=== PATIENT | female | born 1990 | race Caucasian/White ===

== ENCOUNTER → 2021-11-01 10:57 | Outpatient (BNVA) | payer OTHER, SELFPAY | PROVIDERS: PCP Internal Medicine; Visit Provider Physician Assistant Surgical | DX: Z13.89 Encounter for screening for other disorder (principal) ==

== ENCOUNTER → 2021-11-10 14:41 | Outpatient (BNVA) | payer OTHER, SELFPAY | PROVIDERS: PCP Internal Medicine; Visit Provider Physician Assistant Surgical | DX: E66.9 Obesity, unspecified (principal); Z68.39 Body mass index [BMI] 39.0-39.9, adult | CPT/HCPCS: 99202 ==

== ENCOUNTER 2021-11-15 12:44 | Outpatient (REF) | payer OTHER, SELFPAY ==
--- NOTE | ~2021-11-15 | XR_ITS ---
EXAMINATION: XR CHEST CLINICAL INFORMATION: Obesity COMPARISON: None TECHNIQUE: 2 views of the chest were obtained. FINDINGS: No significant abnormality is noted involving the heart, lungs, mediastinum, bony thorax or soft tissues. XR/XR chest 2V IMPRESSION: Unremarkable examination.
[2021-11-15 13:11] LABS: MANUAL DIFF FLAG NO
--- NOTE | 2021-11-15 13:11 | ECG_ITS ---
Test Reason : CP Blood Pressure : / mmHG Vent. Rate : 089 BPM Atrial Rate : 089 BPM P-R Int : 158 ms QRS Dur : 074 ms QT Int : 368 ms P-R-T Axes : 057 064 044 degrees QTc Int : 447 ms Normal sinus rhythm Normal ECG No previous ECGs available Referred By: Adriel Whitehead Electronically Signed By:ANTWON BAL
[2021-11-15 14:05] LABS: Basophils Percent Auto 0.2 % (0-2); Eosinophils Absolute Auto 0.1 X10*3/uL (0.0-0.4); Eosinophils Percent Auto 1.9 % (0-4); Hematocrit 39.4 % (37.0-47.0); Hemoglobin 12.6 g/dl (12.0-16.0); Imm Gran Abs Auto 0.02 X10*3/uL (0.00-0.03); Imm Gran Pct Auto 0.3 % (0.0-0.4); Lymphocytes Absolute Auto 1.7 X10*3/uL (1.2-4.9); Lymphocytes Percent Auto 27.7 % (20-40); Mean Corpuscular Volume 81.2 fL (80.0-98.0); Mean Platelet Volume 13.1 fL (9.4-12.3); Monocytes Absolute Auto 0.4 X10*3/uL (0.1-1.2); Neutrophils Absolute Auto 3.9 x10*3/uL (2.0-8.3); Neutrophils Percent Auto 62.9 % (45-73); Platelet Count 203 X10*3/uL (160-400); Red Blood Count 4.85 X10*6/uL (4.20-5.50); Red Cell Distribution Width 15.6 % (11.0-16.0); White Blood Count 6.2 X10*3/uL (4.8-10.8)
[2021-11-15 14:17] LABS: Estimated Average Glucose 157 mg/dL; Hemoglobin A1c % 7.1 %
[2021-11-15 14:19] LABS: Alanine Aminotransferase 15 U/L (0-31); Alkaline Phosphatase 80 U/L (39-117); Anion Gap 14 (12-20); Aspartate Amino Transferase 15 U/L (5-31); Bilirubin Total 0.4 mg/dL (0.0-1.0); Blood Urea Nitrogen 10 mg/dL (9-16); C Reactive Protein 1.93 mg/dL (< or = 0.50); Calcium 8.8 mg/dL (8.4-10.2); Carbon Dioxide 26 mmol/L (22-29); Chloride 105 mmol/L (96-108); Cholesterol 136 mg/dL; Estimated Glomerular Filt Rate > 60; Glucose Random 123 mg/dL (60-115); HDL Cholesterol 37 mg/dL; Iron 27 mcg/dL (30-160); LDL Cholesterol Calculated 89 mg/dl; Percent Iron Saturation 8 % (15-50); Potassium 4.5 mmol/L (3.3-5.1); Sodium 140 mmol/L (135-145); Total Iron Binding Capacity 350 mcg/dL (228-428); Total Protein 7.2 g/dL (6.5-8.0); Triglycerides 54 mg/dL; Unsaturated Iron Binding 323 ug/dL
[2021-11-15 14:42] LABS: Ferritin 24 ng/mL (10-122); Vitamin D 25-OH Total 22.4 ng/mL (>30)
[2021-11-15 14:58] LABS: Folate > 20.0 ng/mL (> or = 4.0); Vitamin B12 884 pg/mL (200-900)
[2021-11-15 15:04] LABS: Insulin 13 uU/mL (2-29)
[2021-11-16 14:47] LABS: Calcium (PTHI) 8.9 mg/dL (8.6-10.2); PTHI 63 pg/mL (16-77)
[2021-11-18 05:36] LABS: Zinc 79 mcg/dL (60-130)
[2021-11-19 00:58] LABS: Vitamin A 27 mcg/dL (38-98)
[2021-11-21 12:32] LABS: Vitamin B1 11 nmol/L (8-30)
== END 2021-11-15 12:45 | disposition home or self-care (01) ==
LOC: HO.LAB 12:44
PROVIDERS: Visit Provider Physician Assistant Surgical
DX: E66.9 Obesity, unspecified (principal); R07.9 Chest pain, unspecified
CPT/HCPCS: 36415; 71046; 80053; 80061; 82306; 82607; 82728; 82746; 83036; 83525; 83540; 83970; 84425; 84443; 84590; 84630; 85025; 86140; 93005

== ENCOUNTER → 2021-11-22 09:00 | Outpatient (BNVA) | payer OTHER, SELFPAY | PROVIDERS: PCP Internal Medicine; Visit Provider Counselor Mental Health | DX: F50.81 Binge eating disorder (principal); E66.9 Obesity, unspecified | CPT/HCPCS: 90791 ==

== ENCOUNTER → 2021-11-29 08:35 | Outpatient (BNVA) | payer OTHER, SELFPAY | PROVIDERS: PCP Internal Medicine; Visit Provider Physician Assistant Surgical | DX: Z11.0 Encounter for screening for intestinal infectious diseases (principal) | CPT/HCPCS: 99211 ==

== ENCOUNTER 2021-11-29 08:55 | Outpatient (REF) | payer OTHER, SELFPAY ==
[2021-12-02 17:27] LABS: H Pylori Breath Test Negative (Negative)
== END 2021-11-29 08:56 | disposition home or self-care (01) ==
LOC: HO.LNP 08:55
PROVIDERS: Visit Provider Physician Assistant Surgical
DX: E66.9 Obesity, unspecified (principal)
CPT/HCPCS: 83013

== ENCOUNTER → 2021-12-06 10:36 | Outpatient (BNVA) | payer OTHER, SELFPAY | PROVIDERS: PCP Internal Medicine; Visit Provider Dietitian, Registered | DX: E66.9 Obesity, unspecified (principal) | CPT/HCPCS: 97802 ==

== ENCOUNTER → 2021-12-20 09:00 | Outpatient (BNVA) | payer OTHER, SELFPAY | PROVIDERS: PCP Internal Medicine; Visit Provider Counselor Mental Health | DX: F50.81 Binge eating disorder (principal); E66.9 Obesity, unspecified | CPT/HCPCS: 90832 ==

== ENCOUNTER 2022-01-03 07:49 | Outpatient (REF) | payer OTHER, SELFPAY ==
--- NOTE | ~2022-01-03 | FL_ITS ---
EXAMINATION: XR FLUOROSCOPY UPPER GI WITH AIR CLINICAL INFORMATION: Obesity. COMPARISON: None. TECHNIQUE: Routine upper GI air-contrast study was performed in upright and lying position. FINDINGS: Following oral administration of thick barium and effervescent granules in upright view there is normal propagation bolus from the oral cavity through the esophagus into the stomach without any evidence of obstruction, narrowing or stricture. On placing the patient supine and prone, the course, caliber and peristalsis of stomach and the duodenal bulb is normal. The mucosal pattern of the stomach and the duodenum is normal. FLUOROSCOPY TIME: 2.0 minutes. DOSE AREA PRODUCT: 37.4 uGy-m2 (microgray-meter squared) FL/FL upper GI w air IMPRESSION: Unremarkable upper GI examination.
--- NOTE | ~2022-01-03 | US_ITS ---
EXAMINATION: US COMPLETE ABDOMEN WITH LIVER ELASTOGRAPHY CLINICAL INFORMATION: Obesity. COMPARISON: None. TECHNIQUE: Real-time imaging of the abdominal viscera. Noninvasive ultrasound liver fibrosis assessment is performed using Mahamed ElastPQ point quantification shear wave elastography (2D-SWE) with a C5-2 MHz transducer. Multiple elastography samples are obtained. FINDINGS: PANCREAS: Normal. The visualized pancreatic head and body are normal in appearance. The remainder of the pancreas is obscured from visualization by the overlying bowel gas. ABDOMINAL AORTA: The proximal, middle, and distal aortic segments are normal in caliber. INFERIOR VENA CAVA: Visualized portions are normal. LIVER: . The liver demonstrates normal size, contour and echogenicity. There is a hyperechoic focal area in the anterior right hepatic lobe measuring 4.5 x 1.3 x 3.3 cm, likely focal fatty infiltration. No additional lesions are seen. There is no intrahepatic ductal dilatation. The right lobe measures 18.6 cm in length. The left lobe measures 11.3 cm in length. Portal flow is hepatopetal. Shear wave liver elastography median stiffness is 1.37 m/s (reference: normal median stiffness is 1.3 m/s or less). IQR/median stiffness to assess sampling precision is 0.15 (reference: good quality data set is IQR/median stiffness of 0.15 or less). GALLBLADDER: Normal. The gallbladder is physiologically distended without evidence of stones, sludge, polyps, wall thickening or pericholecystic fluid. COMMON BILE DUCT: Normal in caliber measuring 0.3 cm in diameter. RIGHT KIDNEY: No hydronephrosis. There is a small echogenic area in the lower pole measuring 0.5 x 0.2 x 0.4 cm without a twinkle. No additional lesions are seen. No focal parenchymal lesions. The kidney measures 11.0 cm in maximum dimension. LEFT KIDNEY: . There is no caliectasis or hydronephrosis. No renal calculi or focal parenchymal lesions. The kidney measures 11.8 cm in maximum dimension. SPLEEN: Normal. The spleen measures 12.4 cm in maximum dimension. FREE FLUID: None. US/US abdomen comp w elastography IMPRESSION: 1. Right renal calculi without calculus hydronephrosis. Focal fatty infiltration in the right hepatic lobe measuring 4.5 cm wide. 2. Liver elastography: Median liver stiffness measures 1.37 m/s suggestive of cACLD (ruled out) REFERENCE: Society of Radiologists in Ultrasound Liver Stiffness Thresholds (2020): LIVER STIFFNESS THRESHOLDS: *Liver Stiffness equal or less than 1.3 m/s: High probability of being normal. *Liver Stiffness less than 1.7 m/s: In the absence of other known clinical signs, rules out compensated advanced chronic liver disease. *Liver Stiffness 1.7-2.1 m/s: Suggestive of compensated advanced chronic liver disease but need further test for confirmation. *Liver Stiffness over 2.1 m/s: Rules in compensated advanced chronic liver disease. *Liver Stiffness over 2.4 m/s: Suggestive of clinically significant portal hypertension. QUALITY OF DATA SET: *IQR/Median value equal or less than 0.15 implies a quality data set. *IQR/Median value over 0.15 implies a poor quality data set. SIGNIFICANT CHANGE FROM PRIOR EXAM: Significant change if liver stiffness measurement is 10% or greater from prior exam. OTHER CONSIDERATIONS: The stage of liver fibrosis may be overestimated in the setting of acute hepatitis, liver inflammation, elevated liver function tests, hepatic vascular congestion, obstructive cholestasis, non-fasting state, and infiltrative diseases such as amyloidosis and lymphoma. In some patients with NAFLD, the liver stiffness thresholds for compensated advanced chronic liver disease may be lower. In causes other than viral hepatitis and NAFLD, liver stiffness thresholds are not well established.
== END 2022-01-03 07:50 | disposition home or self-care (01) ==
LOC: HO.US 07:49
PROVIDERS: Visit Provider Surgery
DX: E66.9 Obesity, unspecified (principal)
CPT/HCPCS: 74246; 76705; 76981

== ENCOUNTER 2022-02-01 09:06 | Outpatient (REF) | payer OTHER, SELFPAY | END 2022-02-01 09:07 | disposition home or self-care (01) | LOC: HO.LAB 09:06 | PROVIDERS: PCP Internal Medicine; Visit Provider Physician Assistant Surgical | DX: Z13.89 Encounter for screening for other disorder (principal) ==

== ENCOUNTER 2022-02-08 06:03 | Inpatient (IN) | payer OTHER, SELFPAY ==
[2022-01-21 13:05] VITALS: BMI 35.9
[2022-02-01 09:46] LABS: MANUAL DIFF FLAG NO
[2022-02-01 10:54] LABS: Basophils Percent Auto 0.4 % (0-2); Eosinophils Absolute Auto 0.1 X10*3/uL (0.0-0.4); Eosinophils Percent Auto 2.2 % (0-4); Hematocrit 43.1 % (37.0-47.0); Imm Gran Abs Auto 0.01 X10*3/uL (0.00-0.03); Imm Gran Pct Auto 0.2 % (0.0-0.4); Lymphocytes Absolute Auto 1.5 X10*3/uL (1.2-4.9); Lymphocytes Percent Auto 30.8 % (20-40); Mean Corpuscular HGB Conc 32.5 g/dl (31.0-35.0); Mean Corpuscular Hemoglobin 26.7 pg (27.0-33.0); Mean Corpuscular Volume 82.1 fL (80.0-98.0); Mean Platelet Volume 12.6 fL (9.4-12.3); Monocytes Absolute Auto 0.4 X10*3/uL (0.1-1.2); Monocytes Percent Auto 7.9 % (2-11); Neutrophils Absolute Auto 2.9 x10*3/uL (2.0-8.3); Neutrophils Percent Auto 58.5 % (45-73); Platelet Count 222 X10*3/uL (160-400); Red Blood Count 5.25 X10*6/uL (4.20-5.50); Red Cell Distribution Width 14.4 % (11.0-16.0); White Blood Count 4.9 X10*3/uL (4.8-10.8)
[2022-02-01 10:55] LABS: INTERNATIONAL NORM RATIO 1.1 (0.9-1.1); Prothrombin Time 13.1 SEC (10.0-13.1)
[2022-02-01 10:57] LABS: Estimated Average Glucose 134 mg/dL; Hemoglobin A1c % 6.3 %
[2022-02-01 11:18] LABS: Alanine Aminotransferase 12 U/L (0-31); Albumin Level 4.2 g/dL (3.5-5.0); Alkaline Phosphatase 73 U/L (39-117); Anion Gap 15 (12-20); Aspartate Amino Transferase 14 U/L (5-31); Bilirubin Total 0.5 mg/dL (0.0-1.0); Blood Urea Nitrogen 12 mg/dL (9-16); C Reactive Protein 0.76 mg/dL (< or = 0.50); Calcium 9.3 mg/dL (8.4-10.2); Carbon Dioxide 25 mmol/L (22-29); Chloride 103 mmol/L (96-108); Cholesterol 148 mg/dL; Creatinine Clr Calc Pharmacy 123.6; Estimated Glomerular Filt Rate > 60; Glucose Random 182 mg/dL (60-115); HDL Cholesterol 39 mg/dL; LDL Cholesterol Calculated 99 mg/dl; Potassium 4.4 mmol/L (3.3-5.1); Sodium 139 mmol/L (135-145); Total Protein 7.4 g/dL (6.5-8.0); Triglycerides 53 mg/dL
[2022-02-01 11:42] LABS: Insulin 9 uU/mL (2-29); TSH reflex Free T4 2.49 uIU/mL (0.32-4.0)
--- NOTE | 2022-02-05 13:49 | MHC.SHP ---
Pre-Procedural Eval Section A Date of Service: 02/05/22 The patient is an INPATIENT: Yes The History & Physical has been completed within 30 days and I have reviewed it.: Yes Section B Chief Complaint: obesity Relevant Family History (Specify if Yes): No Relevant Social History: None Present Medications: None Medical History: No relevant PMH History of Previous Operations: No relevant previous surgery Allergies: Allergies Allergy/AdvReac Type Severity Reaction Status Date / Time No Known Allergies Allergy Verified 01/21/22 12:40 Review of Systems Sugical H&P ROS: Negative: Constitution, Cardiovascular, Respiratory, Neurological, Psychiatric, Hem-Onc, Allergic/Immunologic, Gastrointestinal, Genitourinary, Musculoskeletal, Integumentary, Endocrine and Eyes/Ears/Nose/Throat Exam Surgical H&P Exam: Normal: HEENT, Normal: Heart, Normal: Lungs, Normal: Extremities, Normal: Abdomen, Normal: Skin and Normal: Neurological Plan Diagnosis/Plan: Unchanged I have reviewed the history and physical and performed a pertinent physical examination on my patient. No changes have occurred unless specified.
[2022-02-07 13:35] LABS: COVID-19 Test Negative (Negative); IDNOW Serial# 16C4AD1C
[2022-02-08] VITALS (14 sets, daily range): BP systolic 98–154; BP diastolic 69–83; PULSE 65–95; RESP 13–21; TEMP 36.2–36.6; O2SAT 97–100
[2022-02-08 06:23] LABS: UPreg QC Valid YES; Urine Pregnancy NEGATIVE (NEGATIVE)
[2022-02-08] MEDS: Lactated Ringers 1,000 ML 999 ML IV ×2 (06:47)
--- NOTE | 2022-02-08 07:24 | HO.ANESPROP2 ---
[facility] Active Problems Active Problems: All Active Problems (Updated 01/25/22 @ 12:55 by FRANK Bolanos) Pre-op testing (Acute) Obesity (BMI 30-39.9) (Acute) Diabetes (Acute) GERD (gastroesophageal reflux disease) (Acute) Asthma (Acute) Binge eating disorder (Acute) BMI 39.0-39.9,adult (Acute) Insulin dependent diabetes mellitus type IA (Acute) Past Medical History Medical History Asthma Diabetes GERD (gastroesophageal reflux disease) Family History Family History Mother Depression Hypertension Sister Depression Anxiety Sister Depression Anxiety Diabetes Family history of problems with anesthesia: No Surgical History Surgical History Hx of section Hx of tonsillectomy History of Problems with Anesthesia: No Social History Social History Are you a primary health care law specialist to a significant other at home: No Do you presently have visiting nurse or other home services: No Alcohol intake: never Patient Tobacco Use Status: Former Tobacco user Quit Date: 8 yrs ago Tobacco use type: Cigarette Use of substances other than those prescribed or required for medical reasons: No Substance Use Type Other:: Quit 8 yrs ago Have you been hit, kicked, punched, or otherwise hurt by someone within the past year? If so, by whom?: No Are you DNR?: No Advance Directives: No Advance Directives Information Provided: Yes (Info mailed w/ pre op instructions) Advance Directives on File: No Recently lost weight without trying: No How much weight loss: 14-23 pounds Eating poorly because of decreased appetite: No Nutrition screen score: 2 Nutrition Risks: No Nutritional Risk Patient : No FDLMP: 01/20/22 : No Poor oral hygiene: No Meds Allergies Allergy/AdvReac Type Severity Reaction Status Date / Time latex Allergy Rash Verified 02/08/22 06:10 Active Medications: Current Medications Lactated Ringer's (Lr) 1,000 mls @ 999 mls/hr IV .Q1H1M KATHE Stop: 02/08/22 08:15 Last Admin: 02/08/22 06:47 Dose: 999 mls/hr Lactated Ringer's (Lr) 1,000 mls @ 50 mls/hr IVCONT .Q20H KATHE Home Medications Medication Instructions Recorded Confirmed Last Taken Type albuterol sulfate 2.5 mg/3 mL mg inhalation 11/01/21 01/25/22 Unknown History (0.083 %) solution for nebulization albuterol sulfate 90 mcg/actuation 2 puff inhalation Q4-6H PRN 11/01/21 01/25/22 Unknown History aerosol inhaler (ProAir HFA) Wheezing cetirizine 10 mg tablet 10 mg PO DAILY 11/01/21 01/25/22 Unknown History cyclobenzaprine 10 mg tablet 10 mg PO BEDTIME 11/01/21 01/25/22 Unknown History docusate sodium 100 mg capsule 100 mg PO BID 11/01/21 01/25/22 Unknown History fluticasone propionate 110 2 puff inhalation BID 11/01/21 01/25/22 Unknown History mcg/actuation HFA aerosol inhaler (Flovent HFA) fluticasone propionate 50 1 spray intranasal BID 11/01/21 01/25/22 Unknown History mcg/actuation nasal spray,suspension insulin lispro 100 unit/mL subcut 11/01/21 01/25/22 Unknown History subcutaneous solution (Humalog U-100 Insulin) iron,carbonyl 65 mg-vitamin C 125 1 tab PO DAILY 01/21/22 01/25/22 Unknown History mg tablet,delayed release (Vitron-C) Exam Exam Date and Time: February 08, 2022 0724 Height,Weight and Vital Signs: Height 5 ft 5 in Weight 97.976 kg Last Vital Signs Temp 97.2 F 02/08/22 06:34 Pulse 82 02/08/22 06:34 Resp 16 02/08/22 06:34 BP 98/69 02/08/22 06:34 Pulse Ox 97 02/08/22 06:34 O2 Del Method 02/08/22 06:34 Pertinent Lab Results Pertinent Lab Results: Laboratory Tests 02/01/22 02/01/22 02/01/22 09:32 09:45 09:45 WBC 4.9 RBC 5.25 Hgb 14.0 Hct 43.1 MCV 82.1 MCH 26.7 L MCHC 32.5 RDW 14.4 Plt Count 222 MPV 12.6 H Immature Gran % (Auto) 0.2 Neut % (Auto) 58.5 Lymph % (Auto) 30.8 [place] % (Auto) 7.9 Eos % (Auto) 2.2 Baso % (Auto) 0.4 Lymph # (Auto) 1.5 [place] # (Auto) 0.4 Eos # (Auto) 0.1 Baso # (Auto) 0.0 Abs Immat Gran (auto) 0.01 Absolute Neuts (auto) 2.9 Absolute Nucleated RBC 0.000 Nucleated RBC % (auto) 0.0 PT 13.1 INR 1.1 APTT 31.0 Sodium Potassium Chloride Carbon Dioxide Anion Gap BUN Creatinine Estim Creat Clear Calc Estimated GFR Random Glucose Estimat Average Glucose Hemoglobin A1c % Insulin Level Calcium Total Bilirubin AST ALT Alkaline Phosphatase C-Reactive Protein Total Protein Albumin Triglycerides Cholesterol LDL Cholesterol, Calc HDL Cholesterol TSH Urine Test COVID-19 (RAJENDRA) COVID-[employer] Com Blood Type A Positive Antibody Screen NEGATIVE 02/01/22 02/01/22 02/07/22 09:45 09:45 13:15 WBC RBC Hgb Hct MCV MCH MCHC RDW Plt Count MPV Immature Gran % (Auto) Neut % (Auto) Lymph % (Auto) [place] % (Auto) Eos % (Auto) Baso % (Auto) Lymph # (Auto) [place] # (Auto) Eos # (Auto) Baso # (Auto) Abs Immat Gran (auto) Absolute Neuts (auto) Absolute Nucleated RBC Nucleated RBC % (auto) PT INR APTT Sodium 139 Potassium 4.4 Chloride 103 Carbon Dioxide 25 Anion Gap 15 BUN 12 Creatinine 0.75 Estim Creat Clear Calc 123.6 Estimated GFR > 60 Random Glucose 182 H Estimat Average Glucose 134 Hemoglobin A1c % 6.3 Insulin Level 9 Calcium 9.3 Total Bilirubin 0.5 AST 14 ALT 12 Alkaline Phosphatase 73 C-Reactive Protein 0.76 H Total Protein 7.4 Albumin 4.2 Triglycerides 53 Cholesterol 148 LDL Cholesterol, Calc 99 HDL Cholesterol 39 TSH 2.49 Urine Test COVID-19 (RAJENDRA) Negative COVID-19 [employer] Com See Note Blood Type Antibody Screen 02/08/22 06:06 WBC RBC Hgb Hct MCV MCH MCHC RDW Plt Count MPV Immature Gran % (Auto) Neut % (Auto) Lymph % (Auto) [place] % (Auto) Eos % (Auto) Baso % (Auto) Lymph # (Auto) [place] # (Auto) Eos # (Auto) Baso # (Auto) Abs Immat Gran (auto) Absolute Neuts (auto) Absolute Nucleated RBC Nucleated RBC % (auto) PT INR APTT Sodium Potassium Chloride Carbon Dioxide Anion Gap BUN Creatinine Estim Creat Clear Calc Estimated GFR Random Glucose Estimat Average Glucose Hemoglobin A1c % Insulin Level Calcium Total Bilirubin AST ALT Alkaline Phosphatase C-Reactive Protein Total Protein Albumin Triglycerides Cholesterol LDL Cholesterol, Calc HDL Cholesterol TSH Urine Test NEGATIVE COVID-19 (RAJENDRA) COVID-19 Clin Com Blood Type Antibody Screen Airway Mallampati Class: II TM Dist: >3cm Neck ROM: Full Assessment and Plan Assessment Anesthesia Assessment: Anesthesia Plan Discussed and Chart Reviewed Final Anesthetic Review Family History of Problems with Anesthesia: No History of Problems with Anesthesia: No NPO: Yes ASA Class: III Final Preanesthetic Review: No Changes in Pt Med Stat, Meds/Allgs Chart Reviewed, Consent Obtained/Reviewed and Anes Risks/Benef Reviewed Patient Risk: Intermediate Procedure Risk: Intermediate Anesthetic Plan Anesthetic Plan: GA Disposition: Standard PACU
--- NOTE | 2022-02-08 07:40 | P.BOP_ITS ---
Brief Operative Note Date of Service: 02/08/22 Pre-op diagnosis: Severe obesity with comorbidities (see below) Post-op diagnosis: same Procedure: INITIAL PATIENT BMI ON PRESENTATION AT OUR OFFICE: 39.5 kg/m2 LAST BMI BEFORE SURGERY: 34.5 kg/m2 COMORBIDITIES: insulin dependent diabetes type I, asthma, GERD, back pain, kidney stone ?The patient presented to the Weight Management Program with significant obesity that was negatively impacting the patient's comorbidities as listed above.? The program is a phased program with a special focus on preoperative medical weight management to promote substantial weight loss and prepare the patients for the second phase of the program: bariatric surgery. The patient participated in an intensive weekly lifestyle ?intervention and exercise program during which the patient ?has lost between the initial office visit and the last preoperative visit 30.4lbs, or 12.79% of initial actual body weight. It was deemed appropriate for the patient to now have bariatric surgery. In light of the current Covid-19 pandemic and the well documented strong association of obesity and increased risk of worse outcomes if infected with Covid-19 (REFERENCES: https://pubmed.ncbi.nlm.nih.gov/11724944/ ,? https://pubmed.ncbi.nlm.nih.gov/28547862/ ), any delay in undergoing bariatric surgery may lead to the patient's worsening health condition and increased?risk of more severe Covid-19 disease if infected. In addition a recent?study from [facility] published in [facility] on 06/07/2021 ([email or web address]/C:/[email or web address] [facility] [email or web address] [id number]) found that, among patients with obesity, substantial weight loss achieved with surgery was associated with improved outcomes of COVID-19 infection. The findings suggest that obesity can be a modifiable risk factor for the severity of COVID-19 infection. In addition, the patient met the BMI-criteria for bariatric surgery based on the BMI on initial presentation. The patient should not be penalized for achieving such weight loss because ?it is not sustainable long-term without surgical intervention and it was achieved in preparation for bariatric surgery ?under my direction and based on my published research ([email or web address]).[email or web address] and? https://www.soard.org/article/[email or web address](67)73133-X/pdf ) ?that a 10% preo perative weight loss improves long-term weight loss after surgery and reduces perioperative complications.? Insurance carriers such as [facility] have endorsed my recommendations ?and have included in their policies criteria to include a 10% preoperative weight loss requirement. PROCEDURE: Esophago-gastroscopy, laparoscopic lysis of adhesions, laparoscopic sleeve gastrectomy and laparoscopic gastropexy INDICATIONS: This is a 31 year-old female who was electively scheduled for laparoscopic, possibly open sleeve gastrectomy. The risks and complications of the procedure were discussed with the patient in advance, particularly the possibility of ; pulmonary embolism; staple line leak; bleeding; GERD; cardiac, pulmonary, or renal complications; as well as long-term problems such as insufficient weight loss, vitamin deficiency, strictures, or ulcers. The patient understood all the risks, and was in agreement to proceed with surgery. DESCRIPTION OF PROCEDURE: After informed consent was obtained from the patient, the patient was given preoperative antibiotics, and was transferred to the operating room. After successful induction of general anesthesia, pneumatic compression devices were placed on both lower extremities. An upper endoscopy was performed next. The oropharynx and esophagus appeared to be within normal limits. There was no diaphragmatic hernia present of moderate size consistent with the findings of the preoperative upper GI. The stomach was entered. Then after all fluid and air were suctioned and the stomach was fully decompressed, the scope was withdrawn and secured in the mid esophagus. The patient was then prepped and draped in the usual sterile manner, and abdominal access was established at the right upper quadrant with the Adan technique. A 12 mm blunt port was inserted, and the abdomen was insufflated with CO2 to a pressure of 15 mmHg. Under direct visualization, additional ports were placed, specifically two 5 mm Versi-step ports to the left upper quadrant, and a 5 mm Versi-Step port to the right upper quadrant. 1% lidocaine plain was used to infiltrate all port sites as well as all fascia defects. Following that, the patient was placed in a steep reverse Trendelenburg position. An additional 5 mm port was placed to the right flank for the Mediflex retractor that was used to retract the left lobe of the liver. The gastro-esophageal fat pad was opened with the ultrasonic device (Thunderbeat, Olympus) and the anterior esophagus and hiatus were exposed. The angle of His was opened with the ultrasonic device the fundus of the stomach from any diaphragmatic and splenic attachments. I then opened the gastrocolic ligament between the transverse colon and the greater curvature of the stomach with the ultrasonic device to enter the lesser sac and facilitate the ligation of the short gastric vessels. I started at a mid-point along the greater curvature and using the Thunderbeat, all short gastric vessels were divided all the way to the angle of His until the left cas was completely dissected at its entirety. I then divided the gastro-colic ligament distally to a distance of about 3-4 cm proximal to the pylorus. There were extensive congenital adhesions between the pancreas and posterior gastric wall. Those were lysed completely with the ultrasonic device. Adhesiolysis took approximately 45 min to complete. The stomach was then divided transversely with one Endo GEOFF-45 purple, two GEOFF- 45 orange loads and two GEOFF-6s0 articulating orange loads using the AEON stapler and loads. Every effort was made that the gastric sleeve had a tubular shape and an even caliber throughout. Once the sleeve resection was completed, the staple line of the gastric sleeve was reinforced with Hemoclips. The resected stomach was retrieved without difficulty from the Adan port. A gastropexy was then performed in order to prevent postoperative GERD and partial gastric volvulus. Several interrupted 2.0 Surgidac sutures were placed between the sleeve's staple line and the previously divided greater omentum and gastro-colic ligament using the Endo-Stitch device. ?An upper endoscopy was performed. There was no narrowing at the GE junction. The scope was easily advanced all the way to the pylorus which was clearly visualized. There was no narrowing anywhere and the sleeve's caliber was even throughout. The sleeve's staple line was inspected and there was no evidence of ischemia, bleeding or dehiscence. At that point the gastroscope was withdrawn from the patient?s mouth while we were decompressing the bowel and the stomach from any remaining air. I looked into the lesser sac to see how the sleeve was situating and it was situating well. There was no bleeding from the staple line, spleen, or short gastric vessels. The Mediflex retractor was removed, and the undersurface of the liver was inspected and there was no bleeding. The patient was placed in supine position. I closed the fascial defect of the 12 mm port site with a figure of eight #1 Polysorb suture. Then 60cc of Ropivacaine plain with 10 mg of Dexamethasone were used to infiltrate the fascial closure as well as all skin incisions. A total of 7ml of Zynrelef was applied in the Adan wound. At this point, the abdomen was deflated, all ports were removed under direct vision, and no bleeding was noted from any of the port sites. The skin incisions were irrigated with saline and were closed with 4-0 absorbable monofilament sutures. Steri-Strips and OpSites were used to cover all incisions. The patient was extubated and was transferred in stable condition to the recovery room for further care. I was present and performed all cummings parts of the procedure. Ms. Reynolds was the loan officer assistant. There were no residents to assist with this case. Jeramy Black MD, PhD, FACS Surgeon: Cristobal Black MD Anesthesia: GETA, local and other (TAP block and 7ml Zynrelef) Was an Change House Attendant used for this Procedure?: No Change House Attendant: Vane Reynolds Estimated blood loss (mL): 10 IV fluids (mL): 2,500 Urine output (mL): 0 (No Mccarty to record) Pathology: other (Stomach) Condition: stable Disposition: PACU
--- NOTE | 2022-02-08 07:43 | PM.PNGS ---
Subjective Subjective Date of Service: 02/09/22 Interval history: Patient has mild incisional pain, but was able to ambulate and use the incentive spirometer. She is tolerating phase 1 bariatric diet Physical Exam Vital Signs: Vital Signs: Last Vital Signs Temp 97.2 F 02/08/22 06:34 Pulse 82 02/08/22 06:34 Resp 16 02/08/22 06:34 BP 98/69 02/08/22 06:34 Pulse Ox 97 02/08/22 06:34 O2 Del Method 02/08/22 06:34 BMI result Body Mass Index 35.9 GI: Inspection: Yes normal to inspection, Yes incision (clean, dry and intact) and Yes obesity Extrem: Right lower extremity: normal to inspection (no calf tenderness) Left lower extremity: normal to inspection (no calf tenderness) Objective Data Active Medications Hydromorphone HCl (Hydromorphone Hcl 0.5 Mg/0.5 Ml Syringe) 0.5 mg IVPUSH Q5M PRN; Protocol PRN Reason: Pain, Severe (Pain Scale 7-10) Lactated Ringer's (Lr) 1,000 mls @ 999 mls/hr IV .Q1H1M KATHE Stop: 02/08/22 08:15 Last Admin: 02/08/22 06:47 Dose: 999 mls/hr Documented By: GILBERTO Lactated Ringer's (Lr) 1,000 mls @ 50 mls/hr IVCONT .Q20H KATHE Ondansetron HCl (Ondansetron Hcl 4 Mg/2 Ml Vial) 4 mg IVPUSH ONCE PRN PRN Reason: Nausea and Vomiting Labs CBC & Chem 7: 02/09/22 05:56 02/09/22 05:56 Labs: Laboratory Results - last 24 hr 02/07/22 02/08/22 13:15 06:06 Urine Test NEGATIVE COVID-19 (RAJENDRA) Negative COVID-19 Clin Com See Note Procedures Date of Service Date of Service: 02/09/22 Progress Note: A&P Assessment and plan (1) Obesity (BMI 30-39.9): Status: Inactive Assessment and Plan: s/p laparoscopic sleeve gastrectomy and gastropexy Doing well Check am labs. If OK, will discharge home (2) BMI 39.0-39.9,adult: Status: Acute (3) Insulin dependent diabetes mellitus type IA: Status: Acute (4) GERD (gastroesophageal reflux disease): Status: Acute (5) Kidney stone: Status: Inactive (6) Back pain: Status: Inactive (7) S/P laparoscopic sleeve gastrectomy: Status: Acute (8) Congenital intra-abdominal adhesions: Status: Acute Time Spent With Patient Time: Total time spent is greater than 50% in coordination of care (as documented) at patient's floor/unit and/or counseling patient: Quality Stroke Does the patient have a stroke diagnosis?: No VTE Prior VTE?: No VTE Risk Level:: Surgical - moderate VTE Device Contraindication: N/A - Device Ordered VTE Drug Contraindication: Treatment Not Indicated
[2022-02-08] MEDS: Famotidine/PF 20 MG/2 ML VIAL IVPUSH ×2 (10:20→20:24)
[2022-02-08] MEDS: Lactated Ringers 1,000 ML 100 ML IVCONT ×2 (10:25→20:24)
--- NOTE | 2022-02-08 10:28 | PHA.MEDREC ---
Pharmacy Consult ? Medication Reconciliation Pharmacy has reviewed the medication reconciliation compelted by nursing. Maya Garcia, EugenioD
[2022-02-08] MEDS: HYDROmorphone HCl 0.5 MG/0.5 ML SYRINGE IVPUSH (10:36)
[2022-02-08 10:43] LABS: Anion Gap 16 (12-20); Blood Urea Nitrogen 9 mg/dL (9-16); Calcium 8.6 mg/dL (8.4-10.2); Carbon Dioxide 20 mmol/L (22-29); Chloride 106 mmol/L (96-108); Estimated Glomerular Filt Rate > 60; Glucose Random 239 mg/dL (60-115); Potassium 4.1 mmol/L (3.3-5.1); Sodium 138 mmol/L (135-145)
[2022-02-08] MEDS: Subcutaneous Insulin Pump 1 EACH SUBCUT ×3 (10:45→20:26)
--- NOTE | 2022-02-08 12:28 | P.DS_ITS ---
DS: Providers Provider Date of Service: 02/09/22 Date of admission: 02/08/22 06:03 Primary care physician: Unknown Physician DS: Diagnosis Discharge Diagnosis (1) BMI 39.0-39.9,adult: Status: Acute (2) Insulin dependent diabetes mellitus type IA: Status: Acute (3) GERD (gastroesophageal reflux disease): Status: Acute (4) S/P laparoscopic sleeve gastrectomy: Status: Acute (5) Congenital intra-abdominal adhesions: Status: Acute DS: Summary Hospital Course Hospital Course: ADMITTING DIAGNOSIS: morbid obesity, Type I DM DISCHARGE DIAGNOSIS: same, s/p laparoscopic sleeve gastrectomy PAST SURGICAL HISTORY: section PROCEDURE: upper endoscopy, laparoscopic sleeve gastrectomy DISCHARGE SUMMARY: History of Present Illness: The patient is a 31 year-old woman with a BMI of 39.3kg/m2 and associated co- morbidities as described above. The patient had extensive work-up,lost 22lbs preoperatively and was electively scheduled for laparoscopic, possible open sleeve gastrectomy and gastropexy. Risks and complications of the surgery were discussed with the patient in advance, particularly the possibility of , pulmonary embolism, anastomotic leak, bleeding, bowel injury, GERD, cardiac, renal or pulmonary complications. The patient understood all the risks and was in agreement with the surgical plan. Hospital Course: The patient underwent an uneventful laparoscopic sleeve gastrectomy with gastropexy on the day of admission. Postoperatively, the patient was transferred to the surgical floor. The patient received IV Acetaminophen and IV dilaudid for pain control. Patient was started on bariatric phase 1 diet POD #0. On postoperative day one, the patient was feeling well without nausea, vomiting, fevers, or tachycardia. The patient had some mild incisional pain and the abdomen was soft. On the morning of postoperative day one, the patient was continued on 1 ounce of water or ice every half hour. During the day, the patient did fairly well, having some incisional pain, but able to ambulate adequately and to tolerate liquids well. Since the patient is doing well, we decided that the patient was ready to be discharged. The patient was given instructions to follow-up with me next week and to call my office for any fever over 101, persistent abdominal pain, nausea, vomiting, GERD, symptoms of DVT such as calf tenderness, or leg swelling, or pulmonary embolism such as chest pain or shortness of breath. The patient was also instructed to drink 40-60 ounces of liquids per day using the 1-ounce cups. The patient had been given prescriptions for Tylenol for pain, Zofran prn for nausea, and pantoprazole and carafate previously. The patient was encouraged to ambulate and use the incentive spirometer. The patient was allowed to shower, but no baths, and encouraged to stay active at home. All of these instructions were given to the patient personally. All questions were answered and the patient understood all instructions, the instructions were also given to the patient in print. Time Spent with Patient Time attestation: Total time spent providing and/or coordinating discharge services: Discharge coordination time: Less than 30 minutes Quality: Safe Use of Opioids Does Pt have an Active Cancer Diagnosis on the Problem List?: No Quality: Stroke Does the patient have a stroke diagnosis?: No Physical Exam Vital Signs: Vital Signs: Last Vital Signs Temp 97.8 F 02/08/22 11:46 Pulse 83 02/08/22 11:46 Resp 16 02/08/22 11:46 BP 133/75 02/08/22 11:46 Pulse Ox 98 02/08/22 11:46 O2 Del Method 02/08/22 11:46 O2 Flow Rate 2 02/08/22 11:46 BMI result Body Mass Index 35.9 DS: Data Data Completed and Pending Pending studies at discharge: Pending at discharge 02/08/22 09:31 Surgical [PTH] Routine Labs on day of discharge: Laboratory Results - last 24 hr 02/07/22 02/08/22 02/08/22 13:15 06:06 10:23 Hgb 13.0 Hct 40.0 Sodium Potassium Chloride Carbon Dioxide Anion Gap BUN Creatinine Estim Creat Clear Calc Estimated GFR Random Glucose Calcium Urine Test NEGATIVE COVID-19 (RAJENDRA) Negative COVID-19 Clin Com See Note 02/08/22 10:23 Hgb Hct Sodium 138 Potassium 4.1 Chloride 106 Carbon Dioxide 20 L Anion Gap 16 BUN 9 Creatinine 0.76 Estim Creat Clear Calc 122.0 Estimated GFR > 60 Random Glucose 239 H Calcium 8.6 D Urine Test COVID-19 (RAJENDRA) COVID-19 Clin Com Discharge Plan Discharge Anticipated Discharge Date/Time: 02/09/22 10:07 Patient Disposition: Home, Self-Care Discharge Diagnosis: s/p sleeve gastrectomy Referrals: Physician,Unknown J [Primary Care Provider] - 1 Week Discharge Medications: Continued cetirizine 10 mg tablet 10 mg PO DAILY Flovent HFA 110 mcg/actuation HFA aerosol inhaler 2 puff inhalation BID albuterol sulfate [ProAir HFA] 90 mcg/actuation HFA aerosol inhaler 2 puff inhalation Q4-6H PRN (Reason: Wheezing) fluticasone propionate 50 mcg/actuation spray,suspension 1 spray intranasal BID cyclobenzaprine 10 mg tablet 10 mg PO BEDTIME albuterol sulfate 2.5 mg /3 mL (0.083 %) solution for nebulization inhalation pantoprazole 40 mg tablet,delayed release (DR/EC) 40 mg PO DAILY Qty: 30 3RF sucralfate 100 mg/mL suspension 10 ml PO BID Qty: 400 3RF ondansetron HCl 4 mg tablet 4 mg PO Q6H PRN (Reason: nausea and vomiting) Qty: 20 0RF Held insulin lispro [Humalog U-100 Insulin] 100 unit/mL solution See Rx Instructions .ROUTE .COMPLEX Hold Instructions: Discuss dosing with Dr Black Rx Instructions: insulin pump Discontinued cholecalciferol (vitamin D3) 125 mcg (5,000 unit) capsule 125 mcg PO DAILY Qty: 30 3RF vitamin A palmitate 10,000 unit capsule 10,000 unit PO DAILY Qty: 30 2RF Vitron-C 65 mg iron- 125 mg tablet,delayed release (DR/EC) 1 tab PO DAILY docusate sodium 100 mg capsule 100 mg PO BID polyethylene glycol 3350 [Miralax] 17 gram powder in packet 17 g PO DAILY Qty: 14 0RF Rx Instructions: 7 packets dissolved in 8 oz water on 02/06/22. Repeat on 02/07/22 Activity on Discharge: No heavy lifting Stand Alone Forms: Patient Portal Discharge page Care Plan Goals: weight loss Health Concerns: obesity Plan of Treatment: No tub baths, sex or returning to work until discussed at first post op appointment. No exercise, alcohol, tobacco or illegal drug use. Continue to use incentive spirometer hourly while awake. Walk in home for 5- 10 minutes every 2 hours during the first week. Continue phase 1 diet today and start phase 2 diet tomorrow morning. Follow all instructions in the bariatric handbook and call with any questions. 1. Please call your doctor or come back to the emergency room should any new symptoms arise. 2. You will receive a courtesy call from [facility] 24-48 hours after discharge. 3. Activity: abstain from alcohol, practice limited stair climbing, no bending, no driving, no exercise, no illicit substances, no lifting, no sex, no tub bath, no work. 4. Diet: continue as discussed with bariatric team.. 5. Dressing Change/Wound Care: Do not change or remove surgical dressings unless they are wet or soiled. 6. Call your doctor if: - Your temperature exceeds 101.5 F - You experience excessive pain or swelling - You have an unexpected reaction to medication - You have excessive bleeding - You experience continued vomiting/nausea - Your incision begins to separate - Your incision shows signs of infection such as increased redness, swelling, excessive pain, heat, or drainage (light blood or clear fluid is normal) 7. General instructions: No lifting greater than 5 lbs for the next 4 weeks[address] driving within 24 hours of taking narcotic pain medications. If you do not move your bowels in the next 2 days, please take milk of magnesia over the counter. Please follow the post op diet and do not advance your diet until you are seen in the office in about 2 weeks. Please walk around your home every hour or two to prevent blood clots from forming in your legs. You do not need to wake from sleeping to walk. Please sleep in a bed or couch to prevent kinking at the hips and knees. Please take your incentive spirometer (your lung paper tube cutter) home with you and use it for the next few days to prevent pneumonias. You may shower, no hot tubs, baths or swimming pools. Please call the office with any questions or concerns such as increasing abdominal pain, fever, chills, shortness of breath, chest pain, leg pain or swelling, or redness or drainage from your incisions. Do not hesitate to contact the office with any questions at . The patient's medical history has been reviewed and they are considered low risk for post op DVT and therefore DVT prophylaxis is not considered necessary. Travel after surgery was reviewed. The patient has not disclosed any travel plans during the first 30 days after surgery and they have been advised that within the first 30 days after surgery any bus, plane, train or car travel over 2 hours in duration is contraindicated due to the possibility of developing bl ood clots from immobility. Any travel, needs to include periods of ambulation of 10 minutes in duration every 2 hours. The patient was instructed to discuss any plans for travel during this period with their bariatric surgeon. Assessment: stable, post op sleeve gastrectomy
[2022-02-08] MEDS: ondansetron HCL 4 MG/2 ML VIAL IVPUSH ×2 (13:18→20:24)
[2022-02-08] MEDS: ceFAZolin Sodium/Dextrose,Iso 2 GM/50 ML PIGGYBACK IV (13:18)
[2022-02-08] MEDS: Metoclopramide HCl 10 MG/2 ML VIAL IVPUSH (15:44)
[2022-02-08 15:46] LABS: Glucose, Whole Blood 156 mg/dL (60-115)
[2022-02-08] MEDS: 0.9 % Sodium Chloride Flush 3 ML SYRINGE IVFLUSH (20:26)
[2022-02-08 20:42] LABS: Glucose, Whole Blood 154 mg/dL (60-115)
[2022-02-09] VITALS: BP 129/71; PULSE 68; RESP 18; TEMP 36.8; O2SAT 97
[2022-02-09 03:37] VITALS: BP 120/61; PULSE 70; RESP 18; TEMP 36.4; O2SAT 96
[2022-02-09] MEDS: Lactated Ringers 1,000 ML 100 ML IVCONT (05:06)
[2022-02-09] MEDS: ondansetron HCL 4 MG/2 ML VIAL IVPUSH (05:06)
[2022-02-09 06:24] LABS: MANUAL DIFF FLAG NO
[2022-02-09 06:41] LABS: Basophils Percent Auto 0.1 % (0-2); Hematocrit 38.2 % (37.0-47.0); Hemoglobin 12.8 g/dl (12.0-16.0); Imm Gran Abs Auto 0.02 X10*3/uL (0.00-0.03); Imm Gran Pct Auto 0.3 % (0.0-0.4); Lymphocytes Absolute Auto 2.2 X10*3/uL (1.2-4.9); Lymphocytes Percent Auto 31.7 % (20-40); Mean Corpuscular HGB Conc 33.5 g/dl (31.0-35.0); Mean Corpuscular Hemoglobin 27.2 pg (27.0-33.0); Mean Corpuscular Volume 81.3 fL (80.0-98.0); Mean Platelet Volume 13.1 fL (9.4-12.3); Monocytes Absolute Auto 0.6 X10*3/uL (0.1-1.2); Neutrophils Absolute Auto 4.1 x10*3/uL (2.0-8.3); Neutrophils Percent Auto 59.9 % (45-73); Platelet Count 155 X10*3/uL (160-400); Red Cell Distribution Width 14.1 % (11.0-16.0); White Blood Count 6.9 X10*3/uL (4.8-10.8)
--- NOTE | 2022-02-09 06:50 | HO.POSTANES ---
Post Anesthesia Evaluation Post Anesthesia Evaluation Vital Signs: Vital Signs Temp Pulse Resp BP Pulse Ox O2 Del Method 02/09/22 03:37 97.5 F 70 18 120/61 96 Room Air 02/09/22 00:00 98.3 F 68 18 129/71 97 Room Air 02/08/22 20:00 97.8 F 65 18 130/71 98 Room Air Anesthesia: General Endotracheal-GETA Mental Status: Awake Pain Control: Satisfactory Nausea/Vomiting: None Hydration: Adequate Anesthesia-Related Issues: No Anes. Related Issues
[2022-02-09 06:53] LABS: Anion Gap 16 (12-20); Blood Urea Nitrogen 8 mg/dL (9-16); Calcium 8.3 mg/dL (8.4-10.2); Carbon Dioxide 18 mmol/L (22-29); Chloride 107 mmol/L (96-108); Creatinine Clr Calc Pharmacy 136.3; Estimated Glomerular Filt Rate > 60; Glucose Random 157 mg/dL (60-115); Sodium 137 mmol/L (135-145)
[2022-02-09 07:07] VITALS: BP 131/75; PULSE 72; RESP 17; TEMP 36.8; O2SAT 98
[2022-02-09] MEDS: Famotidine/PF 20 MG/2 ML VIAL IVPUSH (07:15)
[2022-02-09] MEDS: Subcutaneous Insulin Pump 1 EACH SUBCUT (07:19)
[2022-02-09 07:21] LABS: Glucose, Whole Blood 156 mg/dL (60-115)
--- NOTE | 2022-02-09 08:25 | MHC.CM.PN ---
PATIENT REPORTS SHE LIVES WITH HER SPOUSE IS INDEPENDENT AT HOME AND COMMUNITY DENIES USE OF DME OR RECEIVING HOME SERVICES COVID [employer] PCP: ZEFERINO HCP EDUCATED, DECLINED AT THIS TIME SPOUSE TO TRANSPORT D/C PLAN: HOME SELF-CARE
--- NOTE | 2022-02-09 08:30 | MHC.CM.PN ---
PATIENT HAS BEEN MEDICALLY CLEARED FOR DISCHARGE TODAY; DISCHARGE DISPOSITION IS HOME SELF-CARE. SPOUSE TO TRANSPORT.
== END 2022-02-09 09:28 | disposition home or self-care (01) | DRG 403 ==
LOC: HO.SSSA 10:10 → HO.S3 11:49
PROVIDERS: Physician Assistant; Physician Assistant Surgical; Admitting Provider Surgery; PCP Internal Medicine; Visit Provider Surgery
PROC: 0DB64Z3 Excision of Stomach, Percutaneous Endoscopic Approach, Vertical (ICD-10-PCS; CPT 43845; principal; 2022-02-08 07:30)
DX: E66.01 Morbid (severe) obesity due to excess calories (principal); F50.81 Binge eating disorder; J45.909 Unspecified asthma, uncomplicated; K66.0 Peritoneal adhesions (postprocedural) (postinfection); M54.9 Dorsalgia, unspecified; E10.9 Type 1 diabetes mellitus without complications; Z68.34 Body mass index [BMI] 34.0-34.9, adult; K21.9 Gastro-esophageal reflux disease without esophagitis; Z20.822 Contact with and (suspected) exposure to COVID-19; Z87.891 Personal history of nicotine dependence; Z79.51 Long term (current) use of inhaled steroids; Z79.899 Other long term (current) drug therapy
CPT/HCPCS: 36415; 80048; 80053; 80061; 81025; 82947; 83036; 83525; 84443; 85014; 85018; 85025; 85610; 85730; 86140; 86850; 86900; 86901; 87635; 88307; 88342; A4649; C9088; J0131; J0690; J1100; J1170; J2250; J2405; J2550; J2765; J2795; J3010

== ENCOUNTER → 2022-03-04 09:51 | Outpatient (BNVA) | payer OTHER, SELFPAY | PROVIDERS: PCP Internal Medicine; Visit Provider Physician Assistant Surgical | DX: E66.9 Obesity, unspecified (principal); Z98.84 Bariatric surgery status; Z68.32 Body mass index [BMI] 32.0-32.9, adult | CPT/HCPCS: 99212 ==

== ENCOUNTER → 2022-03-16 11:59 | Outpatient (BNVA) | payer OTHER, SELFPAY | PROVIDERS: PCP Internal Medicine; Visit Provider Physician Assistant Surgical | DX: E66.9 Obesity, unspecified (principal); Z98.84 Bariatric surgery status | CPT/HCPCS: 99212 ==

== ENCOUNTER → 2022-04-19 12:28 | Outpatient (BNVA) | payer OTHER, SELFPAY | PROVIDERS: PCP Internal Medicine; Visit Provider Physician Assistant Surgical | DX: E66.3 Overweight (principal); Z98.84 Bariatric surgery status; Z68.29 Body mass index [BMI] 29.0-29.9, adult | CPT/HCPCS: 99212 ==

== ENCOUNTER → 2022-05-25 11:16 | Outpatient (BNVA) | payer OTHER, SELFPAY | PROVIDERS: PCP Internal Medicine; Visit Provider Physician Assistant Surgical | DX: E66.3 Overweight (principal); Z68.28 Body mass index [BMI] 28.0-28.9, adult; Z98.84 Bariatric surgery status | CPT/HCPCS: 99212 ==

== ENCOUNTER → 2022-07-04 14:28 | Outpatient (BNVA) | payer OTHER, SELFPAY | PROVIDERS: PCP Internal Medicine; Visit Provider Physician Assistant Surgical | DX: E66.3 Overweight (principal); Z68.27 Body mass index [BMI] 27.0-27.9, adult; Z98.84 Bariatric surgery status | CPT/HCPCS: 99212 ==

== ENCOUNTER 2022-08-19 10:53 | Outpatient (REF) | payer OTHER, SELFPAY ==
[2022-08-19 11:21] LABS: MANUAL DIFF FLAG NO
[2022-08-19 12:10] LABS: Basophils Percent Auto 0.7 % (0-2); Eosinophils Absolute Auto 0.1 X10*3/uL (0.0-0.4); Eosinophils Percent Auto 3.1 % (0-4); Hematocrit 41.6 % (37.0-47.0); Hemoglobin 13.5 g/dl (12.0-16.0); Imm Gran Abs Auto 0.01 X10*3/uL (0.00-0.03); Imm Gran Pct Auto 0.2 % (0.0-0.4); Lymphocytes Absolute Auto 1.6 X10*3/uL (1.2-4.9); Lymphocytes Percent Auto 35.4 % (20-40); Mean Corpuscular HGB Conc 32.5 g/dl (31.0-35.0); Mean Corpuscular Hemoglobin 27.7 pg (27.0-33.0); Mean Corpuscular Volume 85.2 fL (80.0-98.0); Mean Platelet Volume 12.8 fL (9.4-12.3); Monocytes Absolute Auto 0.4 X10*3/uL (0.1-1.2); Monocytes Percent Auto 7.9 % (2-11); Neutrophils Absolute Auto 2.4 x10*3/uL (2.0-8.3); Neutrophils Percent Auto 52.7 % (45-73); Platelet Count 193 X10*3/uL (160-400); Red Blood Count 4.88 X10*6/uL (4.20-5.50); Red Cell Distribution Width 13.4 % (11.0-16.0); White Blood Count 4.6 X10*3/uL (4.8-10.8)
[2022-08-19 12:44] LABS: Estimated Average Glucose 140 mg/dL; Hemoglobin A1c % 6.5 %
[2022-08-19 13:08] LABS: Alanine Aminotransferase 11 U/L (0-31); Albumin Level 4.2 g/dL (3.5-5.0); Alkaline Phosphatase 66 U/L (39-117); Anion Gap 12 (12-20); Aspartate Amino Transferase 14 U/L (5-31); Bilirubin Total 0.7 mg/dL (0.0-1.0); Blood Urea Nitrogen 12 mg/dL (9-16); C Reactive Protein 0.21 mg/dL (< or = 0.50); Carbon Dioxide 26 mmol/L (22-29); Chloride 107 mmol/L (96-108); Cholesterol 146 mg/dL; Estimated Glomerular Filt Rate > 60; Glucose Random 133 mg/dL (60-115); HDL Cholesterol 47 mg/dL; Iron 79 mcg/dL (30-160); LDL Cholesterol Calculated 91 mg/dl; Percent Iron Saturation 27 % (15-50); Potassium 4.7 mmol/L (3.3-5.1); Sodium 140 mmol/L (135-145); Total Iron Binding Capacity 290 mcg/dL (228-428); Triglycerides 43 mg/dL; Unsaturated Iron Binding 211 ug/dL
[2022-08-19 13:25] LABS: Ferritin 25 ng/mL (10-122); Folate 8.6 ng/mL (> or = 4.0); TSH reflex Free T4 2.52 uIU/mL (0.32-4.0); Vitamin B12 1004 pg/mL (200-900); Vitamin D 25-OH Total 27.8 ng/mL (>30)
[2022-08-19 16:02] LABS: Insulin 11 uU/mL (2-29)
[2022-08-23 14:54] LABS: Calcium (PTHI) 9.4 mg/dL (8.6-10.2); PTHI 71 pg/mL (16-77)
[2022-08-24 00:19] LABS: Zinc 80 mcg/dL (60-130)
[2022-08-24 17:43] LABS: Vitamin B1 <6 nmol/L (8-30)
[2022-08-25 05:09] LABS: Vitamin A 24 mcg/dL (38-98)
== END 2022-08-19 10:54 | disposition home or self-care (01) ==
LOC: HO.LAB 10:53
PROVIDERS: PCP Internal Medicine; Visit Provider Physician Assistant Surgical
DX: E66.3 Overweight (principal); Z98.84 Bariatric surgery status
CPT/HCPCS: 36415; 80053; 80061; 82306; 82607; 82728; 82746; 83036; 83525; 83540; 83970; 84425; 84443; 84590; 84630; 85025; 86140; 99212

== ENCOUNTER → 2022-09-09 10:40 | Outpatient (BNVA) | payer OTHER, SELFPAY | PROVIDERS: PCP Internal Medicine; Visit Provider Dietitian, Registered | DX: E66.9 Obesity, unspecified (principal); Z68.26 Body mass index [BMI] 26.0-26.9, adult | CPT/HCPCS: 97803 ==

== ENCOUNTER → 2022-10-12 10:45 | Outpatient (BNVA) | payer OTHER, SELFPAY | PROVIDERS: PCP Internal Medicine; Visit Provider Dietitian, Registered | DX: E66.3 Overweight (principal); Z68.26 Body mass index [BMI] 26.0-26.9, adult; E11.9 Type 2 diabetes mellitus without complications; Z71.3 Dietary counseling and surveillance | CPT/HCPCS: 97803 ==

== ENCOUNTER → 2024-05-07 09:22 | Outpatient (BNVA) | payer SELFPAY | PROVIDERS: PCP Internal Medicine; Visit Provider Registered Nurse | DX: Z02.79 Encounter for issue of other medical certificate (principal) ==

== ENCOUNTER 2024-12-10 14:49 | Outpatient (AMB) | payer OTHER, SELFPAY ==
--- NOTE | 2024-12-10 14:53 | MHC.OFFVISWM ---
VS Expanded 12/10/24 14:56 BP 114/71 Blood Pressure Location Lt brachial Blood Pressure Position Sitting Pulse 87 Pulse Oximetry 99 Height 5 ft 5 in Weight 186 lb 12.8 oz BMI 31.1 Body Fat % 37.3 Body Fat Mass 69.6 Fat Free Mass 117.0 Visceral Fat Rating 7.0 Body Water % 44.9 Body Water Mass 83.8 Muscle Mass/Score 111.2 Basal Metabolic Rate/Score 1,617 Intake Visit Reasons: (OV) PO LSG 02/08/22 Allergies latex Allergy (Verified 12/10/24 14:53) Rash Medication List - Last Reconciled 12/10/24 by FRANK Bray albuterol sulfate mg inhalation albuterol sulfate 90 mcg/actuation (ProAir HFA) 2 puffs inhalation Q4-6H PRN cetirizine 10 mg PO DAILY cholecalciferol (vitamin D3) 50 mcg PO DAILY fluticasone propionate 110 mcg/actuation (Flovent HFA) 2 puffs inhalation BID fluticasone propionate 50 mcg/actuation 1 spray intranasal BID glucagon 3 mg/actuation (Baqsimi) mg intranasal insulin aspart U-100 (Novolog U-100 Insulin aspart) subcut insulin lispro (Humalog U-100 Insulin) insulin pump Held on 02/09/22. Instructions: Discuss dosing with Dr Black thiamine HCl (vitamin B1) 100 mg PO DAILY vitamin A palmitate 3,000 mcg PO DAILY HPI Comments Details: This?is a?34?yo F who is s/p [facility] 02/08/2022. Weight at last visit on 10/12/2022 was 158 pounds with a BMI of 26.3. Weight today is 186.8 pounds, representing a 28.8 pound weight gain with a BMI today of 31.1.? No complaints of nausea, emesis, abdominal pain or reflux, or constipation. Present meal plan includes: Breakfast fairlife or premier protein shake Cottage cheese tuna salad 1/2 can with villarreal, vegetables, and 1 corn chip Zone protein bar -given at last OV - I gotta get back to good nutrition -wakes up at night with low blood sugar after not eating much during the day Exercise: walking 1 hour 30 minutes daily outside - 3-4 miles [facility], [facility] Medical History Back pain Kidney stone Pre-op testing Diabetes GERD (gastroesophageal reflux disease) Asthma Binge eating disorder Diabetes Obesity (BMI 30-39.9) Surgical History (Updated 12/10/24 @ 14:54 by NELSON Trinidad) H/O gastric sleeve Hx of tonsillectomy Hx of section Family History Mother Depression Hypertension Sister Depression Anxiety Sister Depression Anxiety Diabetes Social History Are you a primary career development coordinator to a significant other at home: No Do you presently have visiting nurse or other home services: No Alcohol intake: never Patient Tobacco Use Status: Former Tobacco user Tobacco use type: Cigarette service: No Current occupational status: other Physical Exam Vital Signs: Last Vital Signs Pulse 87 12/10/24 14:56 BP 114/71 12/10/24 14:56 Pulse Ox 99 12/10/24 14:56 BMI result Body Mass Index 31.1 Assessment & Plan Assessment & Plan (1) S/P laparoscopic sleeve gastrectomy: Code(s): Z98.84 - Bariatric surgery status Category: Surgical (2) Obesity: Code(s): E66.9 - Obesity, unspecified Category: Medical Plan Gave pt [employer] lacey download info and encouraged her to use a plan generated by the lacey. Labs ordered. RTC 3mo. Gave pt my phone # and encouraged her to text any questions/concerns between visits. Orders: Orders Vitamin D 25-OH Total Today Z.84 - Bariatric surgery status Ferritin Today Z.84 - Bariatric surgery status TSH reflex Free T4 Today Z.84 - Bariatric surgery status Vitamin B1 Today Z.84 - Bariatric surgery status Vitamin B12 and Folate Today Z.84 - Bariatric surgery status Comprehensive Met. Panel Today .84 - Bariatric surgery status Hemoglobin A1c Today Z.84 - Bariatric surgery status C Reactive Protein Today Z.84 - Bariatric surgery status Vitamin A Today Z.84 - Bariatric surgery status Zinc Today Z98.84 - Bariatric surgery status Complete Blood Count Auto Diff Today Z.84 - Bariatric surgery status Lipid Panel Today .84 - Bariatric surgery status IRON PROFILE Today Z.84 - Bariatric surgery status Insulin Today Z.84 - Bariatric surgery status
[2024-12-10 14:56] VITALS: BP 114/71; PULSE 87; O2SAT 99; BMI 31.1
--- OUTSIDE RECORDS SUMMARY | 2024-12-10 15:47 | XMS_ITS | Clinical Summary ---
Author Organization [address] Address [address] [place] [address] [place] [address] Phone Care Team Providers Care Continuous Improvement Black Belt Name Role Phone Eyad Gaines MD Primary Care Provider [phone] Allergies Active Allergy Reactions Criticality Noted Date Comments Dog Dander 11/23/2017 Latex 12/06/2023 Other 11/23/2017 Watery eye's , wheezing , running nose sneezing Medications albuterol 2.5 mg /3 mL (0.083 %) nebulizer solution Take 1 Vial by nebulization every 4 hours as needed for Wheezing for up to 180 days. 1 Active albuterol HFA (PROAIR HFA ; PROVENTIL HFA ; VENTOLIN HFA) 90 mcg/actuation inhaler Inhale 2 Puffs into the lungs every 6 hours as needed for Cough, Wheezing or Shortness of Breath. 2 Active cetirizine (ZyrTEC) 10 mg tablet Take 1 Tablet by mouth daily. 3 Active cyclobenzaprine (FLEXERIL) 10 mg tablet Take 1 Tablet by mouth at bedtime. Active fluticasone propionate (FLONASE) 50 mcg/actuation nasal spray 2 Sprays by Nasal route daily. 3 Active insulin aspart (NovoLOG) 100 unit/mL injection 100 Units 1 (one) time each day. 100 Units as directed daily via Tandem pump 4 Active insulin glargine (LANTUS) 100 unit/mL injection Inject 25 Units into the skin at bedtime. *Use only if Pump failure. 4 Active pen needle, diabetic 32 gauge x 5/32 needle Use 4 times a day with insulin pen 4 Active blood-glucose meter kit USE TO TEST B/S QID 2 Active FREESTYLE LANCETS MISC USE TO TEST B/S UP TO QID 2 Active blood-glucose transmitter (DEXCOM G6 TRANSMITTER [facility]) 1 Device by Does not apply route See Admin Instructions. Change transmitter every 3 months. 4 Active glucose blood test strip USE TO TEST B/S UP TO QID 4 Active Glucagon HCl, rDNA, 1 mg injection Use as directed for low blood sugar. 1 kit 11 5 Active subcutaneous insulin pump [facility] Tandem Tslim insulin pump, See Instructions, Refills 0, Maintenance, NOT sharing, 08/10/22 12:35:00 EST, Supply 3 Active insulin syringe-needle U-100 1 mL 31 gauge x 5/16 syringe Inject 1 Syringe into the skin 5 times daily. For Insulin injections.Injec t 1 Syringe into the skin 5 times daily. For Insulin injections. 500 each 3 5 Active calcium carbonate-vitam in D 500 mg-5 mcg (200 unit) per tablet Take 1 tablet by mouth 1 (one) time each day. Active vitamin iron fum-folic acid 27-0.8 mg per tablet Take 1 tablet by mouth 1 (one) time each day. 30 each 11 5 10/16/19 26 Active Active Problems Problem Noted Date Diagnosed Date History of sleeve gastrectomy 10/05/2023 Overview (04/01/2024): 02/08/22, [facility] Allergic to cats 10/19/2020 Adverse food reaction 08/13/2020 Eczema 05/25/2020 Gastroesophageal reflux disease without esophagi tis 09/22/2016 Backache 09/05/2013 Overview (04/01/2024): Mri 08/23-uremarkable Perennial allergic rhinitis 12/23/2010 Asthma 06/08/2010 DM (diabetes mellitus), type 1 with renal complications ([facility] V24, [facility] V28) 06/08/2010 Overview (04/01/2024): [facility]iosu pcp [facility] +Elevated urine microalbumin- on ACEI Last Assessment & Plan: Diabetes Partnership ~ A1C 9.2%. Actively testing 3-4 times/day and taking diabetic medications as prescribed. Diabetic consult scheduled with Neisha Padilla RECONCILIATION MANAGER and lab work ordered. Patient is interested in the insulin pump in the near future. Plan: Ivan agrees to check/record FBS and pre-meal blood sugars for review early next week. Encounters Date Type Department Care Team Description 10/15/2024 9:45 AM EDT Office Visit Obstetrics and Gynecology - [address] [phone] Caity Alberts CNM Encounter for gynecological examination without abnormal finding (Primary Dx); Attempting to conceive; History of sleeve gastrectomy 09/12/2024 9:15 AM EDT Office Visit Internal Medicine - [address] [phone] Eyad Gaines MD Syncope, unspecified syncope type (Primary Dx) from Last 3 Months Immunizations Name Administration Dates Next Due HPV, Quadrivalent 04/24/2007,12/19/2006,11/08/19 07 Hep B, Unspecified 08/26/2014 Influenza Quadravalent, MDCK , 0.5ml, preservative free (Flucelvax) 6mo and older 06/29/2021,04/22/2020 Influenza trivalent, 0.5mL, preservative free (Fluarix; FluLaval; Fluzone) ages 6mo and older (Afluria) 3 years and older 03/13/2016,04/05/2011 Influenza trivalent, MDCK, 0 .5mL, preservative free (Flucelvax) 6mo and older 06/29/2024 Measles 08/26/2014 Mumps 08/26/2014 Pneumococcal polysaccharide 23 valent (Pneumovax 23) 2yo and older 09/23/2013 Rubella 08/26/2014 Tdap Tetanus diptheria acell ular pertussis (Boostrix; Adacel) 7yo and older 04/05/2011 Varicella live (Varivax) 12mo and older 08/27/19 15 Surgical History Surgery Date Site/Laterality Comments TONSILLECTOMY ADENOIDECTOMY, BILATERAL MYRINGOTOMY AND TUBES PROCEDURE: MA TONSILLECTOMY & ADENOIDECTOMY <AGE 12 BARIATRIC SURGERY 02/08/2022 PROCEDURE: [place] LAPS GSTRC RSTRICTIV PX LONGITUDINAL GASTRECTOMY; COMMENT: [facility] Medical History Medical History Date Comments Asthma 06/08/2010 DX:Asthma DM (diabetes mellitus), type 1 with renal complications (CMS/HCC V24, CMS/HCC V28) 06/08/2010 DX:DM (diabetes mellitus), t ype 1 with renal complications (HCC); COMMENT: [facility]iosu [facility] +Elevated urine microalbumin- on ACEI History of sleeve gastrectomy 10/05/2023 DX :History of sleeve gastrectomy; COMMENT: 02/08/22, [facility] Family History Medical History Relation Name Comments Diabetes Father Heart failure Father Hypertension Father Lung cancer Maternal Grandmother Breast CA (50) Hypertension Mother Diabetes Sister Colon cancer Uncle 1 paternal Prostate cancer Uncle 2 paternal Ovarian cancer Neg Hx Uterine cancer Neg Hx Relation Name Status Comments Brother Alive 2,healthy Father dialysis Maternal Grandmother Mother Alive Sister Alive 2, Uncle 1 paternal Uncle 2 paternal Social History Tobacco Use Types Packs/Day Years Used Date Smoking Tobacco: Former Cigarettes Q uit: 06/12/2016 Smokeless Tobacco: Never Tobacco Cessation:Counseling Given: Not Answered Alcohol Use Standard Drinks/Week Comments No 0 (1 standard drink = 0.6 oz pur e alcohol) Comments No Sex and Gender Information Value Date Recorded Sex Assigned at Female 05/15/2024 11:54 AM EST Legal Sex Female 7:06 AM EST Gender Identity Female 05/15/2024 11:54 AM EST Sexual Orientation Straight 06/10/2024 6: 12 PM EST Obstetrics History Para Term AB IAB SAB Ectopic Multiple Livin g Live Births 1 1 0 1 0 0 0 0 0 1 1 Date Outcome GA Total Labor Labor/2nd/3rd Weight Sex Type Anes PTL Stephanie A1 A5 Name Clin 2018 F Living Last Filed Vital Signs Vital Sign Reading Time Taken Comments Blood Pressure 134/87 10/15/2024 9:40 AM EDT Pulse 79 10/15/2024 9:40 AM EDT Temperature 36.6 C (97.9 F) 08/06/2024 10:33 AM EST Respiratory Rate 14 08/08/2024 9:52 AM EST Oxygen Saturation 99% 08/06/2024 10:33 AM EST Inhaled Oxygen Concentration - - Weight 87.5 kg (193 lb) 10/15/2024 9:40 AM EDT Height 165.1 cm (5' 5 ) 10/15/2024 9:40 AM EDT Body Mass Index 32.12 10/15/2024 9:40 AM EDT Plan of Treatment Upcoming Encounters Date Type Department Care Team (Late st Contact Info) Description 12/12/2024 2:30 PM EDT Office Visit Endocrinology - [place] [address] [place] [address] Dali Olea PA [address] [place] [address] Health Maintenance Due Date Last Done Comments Diabetes: Annual Foot Exam 1998 Hepatitis B Vaccines (2 of 3 - 19+ 3-dose series) 09/23/2014 08/26/2014 Pneumococcal Vaccine: Pediatrics (0 to 5 Years) and At-Risk Patients (6 to 64 Years) (2 of 2 - PCV) 09/23/2014 09/23/2013 Depression Screening 05/15/2022 Social Influencers of Health Screening 05/15/2022 COVID-19 Vaccine ( season) 2024 06/29/2021, 12/02/2020 Diabetes: Annual Urine Albumin-Creatinine Ratio (uACR) 10/11/2024 10/12/2023 Diabetes: Blood Sugar Control Test (HGBA1C) 03/02/2025 08/30/2024, 05/13/2024, 01/12/2024, Additional history exists Diabetes: Annual Retina Eye Exam 04/05/2025 04/05/2024, 03/30/2023 Diabetes: Annual GFR (Glomerular Filtration Rate) 06/10/2025 06/10/2024, 10/12/2023, 10/12/2023 Cholesterol Screening (Lipid Panel) 10/11/2028 10/12/2023, 10/12/2023 DTaP,Tdap,and Td Vaccines (3 - Td or Tdap) 12/31/2028 12/31/2018, 04/05/2011 Cervical Cancer Screening: HPV 10/15/2029 10/15/2024, 12/26/2016 HPV Vaccines Completed 04/24/2007, 12/10, 11/07/2006 Varicella Vaccines Aged Out 08/26/2014 No longer eligible based on patient's age to complete this topic Hepatitis C Screening Completed 10/13/2015 HIV Screening Completed 09/01/2016 Influenza Vaccine Completed 06/29/2024, , 04/22/2020, Additional history exists HIB Vaccines Aged Out No longer eligi ble based on patient's age to complete this topic Hepatitis A Vaccines Aged Out No long er eligible based on patient's age to complete this topic IPV Vaccines Aged Out No longer eligi ble based on patient's age to complete this topic MMR Vaccines Aged Out No longer eligi ble based on patient's age to complete this topic Meningococcal ACWY Vaccine Aged Out N o longer eligible based on patient's age to complete this topic Meningococcal B Vaccine Aged Out No l onger eligible based on patient's age to complete this topic RSV Immunization Patients Under 20 months Aged Out No longer eligible based on patient's age to complete this topic Goals Goal Patient Goal Type Associated Problems Recent Progress Patient-Stated? Author STG's 6 visits. General Yes Ashutosh Haddad, PT Note: Pt is Independent and compliant with initial HEP. Pt will demonstrate DNFET of 20 seconds or better to improve tolerance to IADL's. Pt will report a 25% or better decrease in intensity and frequency in SMITH's. Pt will report a 50% or better decrease in neck pain during IADL's. LTG's 12 visits General Yes Ashutosh Haddad, PT Note: Pt will be Independent and compliant with final HEP. Pt will demonstrate DNFET of 28 seconds or better to improve tolerance to IADL's. Pt will report a 45% or better decrease in intensity and frequency in SMITH's. Pt will report a 75% or better decrease in neck pain during IADL's. Procedures Procedure Name Priority Date/Time Associated Diagnosis Comments PAP SMEAR Routine 10/15/2024 10:02 AM EDT Encounter for gynecological examination without abnormal finding HPV WITH REFLEX GENOTYPE Routine 10/15/2024 10:02 AM EDT Encounter for gynecological examination without abnormal finding ECG 12-LEAD Routine 09/12/2024 10:44 AM EDT Syncope, unspecified syncope type HEMOGLOBIN A1C Routine 08/30/2024 12:05 PM EDT Type 1 diabetes mellitus with other kidney complication (CMS/HCC V24, CMS/HCC V28) BASIC METABOLIC PANEL STAT 06/10/2024 4:22 PM EST EXTERNAL DIABETIC RETINA EYE EXAM Routine 04/05/2024 2:27 PM EDT HM URINE ALBUMIN CREATININE RATIO Routine 10/12/2023 LIPID PANEL Routine 10/12/2023 HIV SCREENING Routine 09/01/2016 HEPATITIS C SCREENING Routine 10/13/2015 from Last 3 Months or Most Recently Relevant to Health Maintenance Results * HPV with reflex genotype (10/15/2024 10:02 AM EDT) HPV Negative Negative LAB MICROBIOLOGY METHOD 10/18/2024 8:52 AM EDT [facility] Brushing/Spatula Cervix uteri structure / Unknown 10/15/2024 10:02 AM EDT 10/16/2024 8:10 AM EDT Caity Alberts CNM LAB MOLECULAR DIAGNOSTICS ELVIA ARAUJO Final Result [facility] [address] [place] [address], [place] [phone] * Pap smear (10/15/2024 10:02 AM EDT) Interpretation Negative for intraepithelial lesion or malignancy 10/21/2024 9:06 AM EDT [facility] General Categorization Negative 10/21/2024 9:06 AM EDT [facility] LMP 09/28/2024 10/21/2024 9:06 AM EDT [facility] Specimen Adequacy Satisfactory for evaluation, endocervical/herbert sformation zone component present 10/21/2024 9:06 AM EDT [facility] Pap Methodology Liquid Based Pap Test 10/21/2024 9:06 AM EDT [facility] Disclaimer The Pap test is a screening test which carries an inherent false negative rate. These test results should be correlated with the patient's clinical findings and history. This Pap test was processed using an automated screening system. Technical cytopathology services provided by [facility], at [address] [place] [address] (CLIA # [id number]/Negra Soni MD, Property Management Supervisor.) 10/21/2024 9:06 AM [facility] Console Pap Interpretation Reported 10/21/2024 9:06 AM [facility] Brushing/Spatula Cervix uteri structure / Unknown 10/15/2024 10:02 AM EDT 10/15/2024 10:02 AM EDT Caity Alberts CNM LAB CYTOLOGY ORDERABLES Final Result [facility]) [facility] [address] [place] [address], * ECG 12 lead (09/12/2024 10:44 AM EDT) Narrative Eyad Gaines MD - 09/12/2024 10:44 AM EDT EKG reviewed by Dr Gaines us Eyad Gaines MD ECG ORDERABLES Final Result * (ABNORMAL) Hemoglobin A1c (08/30/2024 12:05 PM EDT) Pathologist [facility] Hemoglobin A1C 7.3(H) <6.5 % LAB CHEMISTRY METHOD 08/30/2024 10:06 PM EDT [facility] Mean Bld Glu Estim. 163 mg/dL LAB CHEMISTRY METHOD 08/30/2024 10:06 PM EDT [facility] Blood Venous blood specimen / Unknown Venipuncture / Unknown 08/30/2024 12:05 PM EDT 08/30/2024 12:05 PM EDT Dali MARIE LAB BLOOD ORDERABLES Final Result [facility] [address] [place] [address], [place] [phone] * (ABNORMAL) Basic metabolic panel (06/10/2024 4:22 PM EST) [facility] Sodium 135 133 - 145 mmol/L LAB CHEMISTRY METHOD 06/10/2024 5:[address] [facility] Potassium 4.3 3.5 - 5.5 mmol/L LAB CHEMISTRY METHOD 06/10/2024 5:14 PM EST [facility] Chloride 104 96 - 110 mmol/L LAB CHEMISTRY METHOD 06/10/2024 5:14 PM EST [facility] CO2 24 21 - 32 mmol/L LAB CHEMISTRY METHOD 06/10/2024 5:[address] [facility] Anion Gap 7 3 - 11 LAB CHEMISTRY METHOD 06/10/2024 5:[address] [facility] Glucose 288(H) 70 - 100 mg/dL LAB CHEMISTRY METHOD 06/10/2024 5:[address] [facility] BUN 16 5 - 25 mg/dL LAB CHEMISTRY METHOD 06/10/2024 5:14 PM EST [facility] Creatinine 0.77 0.50 - 1.10 mg/dL LAB CHEMISTRY METHOD 06/10/2024 5:14 PM EST [facility] eGFR 103 >=60 mL/min/1. 73m2 LAB CHEMISTRY METHOD 06/10/2024 5:14 PM EST [facility] Comment:Calculation based on the Chronic Kidney Disease Epidemiology Collaboration (CKD-EPI) equation refit without adjustment for race. BUN/Creatinine Ratio 20.8 LAB CHEMISTRY METHOD 06/10/2024 5:[address] [facility] Calcium 8.8 8.5 - 10.5 mg/dL LAB CHEMISTRY METHOD 06/10/2024 5:[address] [facility] Blood Venous blood specimen / Unknown Venipuncture / Unknown 06/10/2024 4:22 PM EST 06/10/2024 4:27 PM EST George Angel DO LAB BLOOD ORDERABLES Final Res ult [facility] [address] [place] [address], [place] [phone] * External Diabetic Retina Eye Exam Report (04/05/2024 2:27 PM EDT) Anatomical Region Laterality Modality Ultrasound Historical Provider IMG US PROCEDURES Final R esult * HM Urine Albumin Creatinine Ratio (10/12/2023) Pathologist [facility] Urine Albumin Creatinine Ratio Abstracted Historical Provider HEALTH MAINTENANCE Final Result * (ABNORMAL) Lipid panel (10/12/2023) Pathologist [facility] LDL/HDL Ratio 3 0 - 4 Triglycerides 83 0 - 150 mg/dL Cholesterol 181 0 - 200 mg/dL HDL 63 >=40 mg/dL LDL Cholesterol 102(A) 0 - 100 mg/dL Blood Venous blood specimen / Unknown Historical Provider LAB BLOOD ORDERABLES Brittany l Result * HIV Screening (09/01/2016) HIV Screening Abstracted Historical Provider HEALTH MAINTENANCE Final Result * Hepatitis C Screening (10/13/2015) Hepatitis C Screening Abstracted Historical Provider HEALTH MAINTENANCE Final Result from Last 3 Months or Most Recently Relevant to Health Maintenance Insurance Care Teams Continuous Improvement Black Belt Relationship Specialty Start Date End Date Eyad Gaines MD [address] [place] [id number] PCP - General Internal Medicine 05/15/24
== END 2024-12-10 15:43 | disposition home or self-care (01) ==
LOC: HO.HBS 14:50
PROVIDERS: PCP Internal Medicine; Visit Provider Physician Assistant Surgical
DX: E66.9 Obesity, unspecified (principal); Z68.31 Body mass index [BMI] 31.0-31.9, adult; Z90.3 Acquired absence of stomach [part of]; Z98.84 Bariatric surgery status
CPT/HCPCS: 99214; G2211

== ENCOUNTER → 2024-12-10 14:49 | Outpatient (BNVA) | payer OTHER, SELFPAY | PROVIDERS: PCP Internal Medicine; Visit Provider Physician Assistant Surgical | DX: Z98.84 Bariatric surgery status (principal); E66.9 Obesity, unspecified | CPT/HCPCS: 99212 ==

== ENCOUNTER 2024-12-20 15:30 | Outpatient (REF) | payer OTHER, SELFPAY ==
--- OUTSIDE RECORDS SUMMARY | 2024-12-20 15:32 | XMS_ITS | Clinical Summary ---
Author Organization [address] Address [address] [place] [address] [place] [address] Phone Care Team Providers Care Central Sterilization Technician Name Role Phone Eyad Gaines MD Primary Care Provider [phone] Allergies Active Allergy Reactions Criticality Noted Date [...] 2 Active blood-glucose transmitter (DEXCOM G6 TRANSMITTER [facility]) 1 Device by Does not apply route See Admin Instructions. Change transmitter every 3 months. 4 Active glucose blood test strip USE TO TEST B/S UP TO QID 4 Active Glucagon HCl, rDNA, 1 mg injection Use as directed for low blood sugar. 1 kit 11 5 Active subcutaneous insulin pump [facility] Tandem Tslim insulin pump, See Instructions, Refills [...] (diabetes mellitus), type 1 with renal complications ([facility] V24, [facility] V28) 06/08/2010 Overview (04/01/2024): [facility]iosu pcp [facility] +Elevated urine microalbumin- on ACEI Last Assessment & Plan: Diabetes Partnership ~ A1C 9.2%. Actively testing 3-4 times/day and taking diabetic medications as prescribed. Diabetic consult scheduled with Neisha Padilla SHEEP BONER and lab work ordered. Patient is interested in the insulin pump in the near future. Plan: Ivan agrees to check/record FBS and pre-meal blood sugars for review early next week. Encounters Date Type Department Care Team Description 10/15/2024 9:45 AM EDT Office Visit Obstetrics and Gynecology - [address] [phone] Caity Alberts CNM Encounter for gynecological examination without abnormal finding (Primary Dx); Attempting to conceive; History of sleeve gastrectomy from Last 3 Months Immunizations Name Administration [...] TONSILLECTOMY ADENOIDECTOMY, BILATERAL MYRINGOTOMY AND TUBES PROCEDURE: PA TONSILLECTOMY & ADENOIDECTOMY <AGE 10 BARIATRIC SURGERY 02/08/2022 PROCEDURE: PA LAPS GSTRC RSTRICTIV PX LONGITUDINAL GASTRECTOMY; COMMENT: [facility] Medical History Medical History Date Comments Asthma 06/08/2010 DX:Asthma DM (diabetes mellitus), type 1 with renal complications (CMS/HCC V24, CMS/HCC V28) 06/08/2010 DX:DM (diabetes mellitus), t ype 1 with renal complications (HCC); COMMENT: previosu p[facility] +Elevated urine microalbumin- on ACEI History of sleeve gastrectomy 10/05/2023 DX :History of sleeve gastrectomy; COMMENT: 02/08/22, [facility] Family History Medical History Relation [...] 10/15/2024 9:40 AM EDT Plan of Treatment Health Maintenance Due Date Last Done Comments Diabetes: Annual Foot Exam 1998 Hepatitis B Vaccines (2 of 3 - 19+ 3-dose series) 09/23/2014 08/26/2014 Pneumococcal Vaccine: Pediatrics (0 to 5 Years) and At-Risk Patients (6 to 49 Years) (2 of 2 - PCV) 09/23/2014 09/23/2013 Depression Screening 05/15/2022 Social Influencers of Health Screening 05/15/2022 COVID-19 Vaccine ( season) 2024 06/29/2021, 12/02/2020 Diabetes: Annual Urine Albumin-Creatinine Ratio (uACR) 10/11/2024 10/12/2023 Influenza Vaccine (#1) 2025 , 06/29/2021, 04/22/2020, Additional history exists Diabetes: Blood Sugar Control Test (HGBA1C) 03/02/2025 [...] Screening Completed 10/13/2015 HIV Screening Completed 09/01/2016 HIB Vaccines Aged Out No longer eligi [...] Encounter for gynecological examination without abnormal finding HEMOGLOBIN A1C Routine 08/30/2024 12:05 PM EDT Type 1 diabetes mellitus with other kidney complication ([facility] V24, [facility] V28) BASIC METABOLIC PANEL STAT 06/10/2024 4:22 PM EST EXTERNAL DIABETIC RETINA EYE EXAM Routine 04/05/2024 2:27 PM EDT URINE ALBUMIN CREATININE RATIO Routine 10/12/2023 LIPID PANEL Routine 10/12/2023 HIV SCREENING Routine 09/01/2016 HEPATITIS C SCREENING Routine 10/13/2015 from Last 3 Months or Most Recently Relevant to Health Maintenance Results * HPV with reflex genotype (10/15/2024 10:02 AM EDT) HPV Negative Negative LAB MICROBIOLOGY METHOD 10/18/2024 8:52 AM EDT [facility] Brushing/Spatula Cervix uteri structure / Unknown 10/15/2024 10:02 AM EDT 10/16/2024 8:10 AM EDT Caity Alberts [facility] MOLECULAR DIAGNOSTICS ELVIA ARAUJO Final Result [facility] [address] [place] [address], [place] [phone] * Pap smear (10/15/2024 10:02 AM EDT) Interpretation Negative for intraepithelial lesion or malignancy 10/21/2024 9:06 AM EDT [facility] General Categorization Negative 10/21/2024 9:06 AM EDT [facility] LMP 09/28/2024 10/21/2024 9:06 AM EDT [facility] Specimen Adequacy Satisfactory for evaluation, endocervical/herbert sformation zone component present 10/21/2024 9:06 AM EDT [facility] Pap Methodology Liquid Based Pap Test 10/21/2024 9:06 AM EDT [facility] Disclaimer The Pap test is a screening test which carries an inherent false negative rate. These test results should be correlated with the patient's clinical findings and history. This Pap test was processed using an automated screening system. Technical cytopathology services provided by [facility], at [address] [place] [address] (CLIA # [id number]/Negra Soni MD, Aquarium Specialist.) 10/21/2024 9:06 AM EDT [facility] Console Pap Interpretation Reported 10/21/2024 9:06 AM EDT [facility] Brushing/Spatula Cervix uteri structure / Unknown 10/15/2024 10:02 AM EDT 10/15/2024 10:02 AM EDT us Caity Alberts CNM LAB CYTOLOGY ORDERABLES Final Result Performing Organization Address City/[facility]/ZIP Co de Phone Number [facility] [address] [place] [address], [place] [phone] * (ABNORMAL) Hemoglobin A1c (08/30/2024 12:05 PM EDT) Pathologist [facility] Hemoglobin A1C 7.3(H) <6.5 % LAB CHEMISTRY METHOD 08/30/2024 10:06 PM EDT [facility] Mean Bld Glu Estim. 163 mg/dL LAB CHEMISTRY METHOD 08/30/2024 10:06 PM EDT [facility] Blood Venous blood specimen / Unknown Venipuncture / Unknown 08/30/2024 12:05 PM EDT 08/30/2024 12:05 PM EDT us Dali MARIE LAB BLOOD ORDERABLES Final Result [facility] [address] [place] [address], [place] [phone] * (ABNORMAL) Basic metabolic panel (06/10/2024 4:22 PM EST) Sodium 135 133 - 145 mmol/L LAB CHEMISTRY METHOD 06/10/2024 5:14 PM [facility] Potassium 4.3 3.5 - 5.5 mmol/L LAB CHEMISTRY METHOD 06/10/2024 5:14 PM [facility] Chloride 104 96 - 110 mmol/L LAB CHEMISTRY METHOD 06/10/2024 5:14 PM [facility] CO2 24 21 - 32 mmol/L LAB CHEMISTRY METHOD 06/10/2024 5:14 PM [facility] Anion Gap 7 3 - 11 LAB CHEMISTRY METHOD 06/10/2024 5:14 PM [facility] Glucose 288(H) 70 - 100 mg/dL LAB CHEMISTRY METHOD 06/10/2024 5:14 PM [facility] BUN 16 5 - 25 mg/dL LAB CHEMISTRY METHOD 06/10/2024 5:14 PM [facility] Creatinine 0.77 0.50 - 1.10 mg/dL LAB CHEMISTRY METHOD 06/10/2024 5:14 PM [facility] eGFR 103 >=60 mL/min/1. 73m2 LAB CHEMISTRY METHOD 06/10/2024 5:14 PM [facility] Comment:Calculation based on the Chronic Kidney Disease Epidemiology Collaboration (CKD-EPI) equation refit without adjustment for race. BUN/Creatinine Ratio 20.8 LAB CHEMISTRY METHOD 06/10/2024 5:14 PM [facility] Calcium 8.8 8.5 - 10.5 mg/dL LAB CHEMISTRY METHOD 06/10/2024 5:14 PM [facility] Blood Venous blood specimen / Unknown Venipuncture / Unknown 06/10/2024 4:22 PM EST 06/10/2024 4:27 PM EST us George Angel DO LAB BLOOD ORDERABLES Final Res ult [facility]) [facility] [address] [place] [address], [place] [phone] * External Diabetic Retina Eye Exam Report (04/05/2024 2:27 PM EDT) Anatomical Region Laterality Modality Ultrasound Result [facility] Historical Provider IMG US PROCEDURES Final R esult * Urine Albumin Creatinine Ratio (10/12/2023) Urine Albumin Creatinine Ratio Abstracted Historical Provider HEALTH MAINTENANCE Final Result * (ABNORMAL) Lipid panel (10/12/2023) Pathologist [facility] LDL/HDL Ratio 3 0 - 4 Triglycerides 83 0 - 150 mg/dL Cholesterol 181 0 - 200 mg/dL HDL 63 >=40 mg/dL LDL Cholesterol 102(A) 0 - 100 mg/dL Blood Venous blood specimen / Unknown Result [facility] Historical Provider LAB BLOOD ORDERABLES Brittany l Result * HIV Screening (09/01/2016) Pathologist [facility] HIV Screening Abstracted Historical Provider HEALTH MAINTENANCE Final Result * Hepatitis C Screening (10/13/2015) Pathologist [facility] Hepatitis C Screening Abstracted Historical Provider HEALTH MAINTENANCE Final Result from Last 3 Months or Most Recently Relevant to Health Maintenance Insurance Care Teams Central Sterilization Technician Relationship Specialty Start Date End Date Eyad Gaines MD [address] [place] [phone] PCP - General Internal Medicine 05/15/24
[2024-12-20 15:44] LABS: MANUAL DIFF FLAG NO
[2024-12-20 16:29] LABS: Hematocrit 37.2 % (37.0-47.0); Hemoglobin 12.1 g/dl (12.0-16.0); Imm Gran Abs Auto 0.02 X10*3/uL (0.00-0.03); Imm Gran Pct Auto 0.4 % (0.0-0.4); Lymphocytes Absolute Auto 1.6 X10*3/uL (1.2-4.9); Mean Corpuscular HGB Conc 32.5 g/dl (31.0-35.0); Mean Corpuscular Hemoglobin 25.1 pg (27.0-33.0); Mean Corpuscular Volume 77.0 fL (80.0-98.0); NRBC Abs Auto 0.000 X10*3/uL (0.0-0.012); NRBC Pct Auto 0.0 /100WBC (0.0-0.2); Platelet Count 220 X10*3/uL (160-400); Red Blood Count 4.83 X10*6/uL (4.20-5.50); White Blood Count 4.6 X10*3/uL (4.8-10.8)
[2024-12-20 16:47] LABS: Hemoglobin A1C 166.0874 umol/L; Total Hemoglobin (HGBA1C) 3332.6638 umol/L
[2024-12-20 17:06] LABS: Alanine Aminotransferase 12 U/L (0-31); Albumin Level 4.2 g/dL (3.5-5.0); Alkaline Phosphatase 71 U/L (39-117); Anion Gap 10 (12-20); Aspartate Amino Transferase 17 U/L (5-31); Blood Urea Nitrogen 11 mg/dL (9-16); Calcium 9.1 mg/dL (8.4-10.2); Carbon Dioxide 26 mmol/L (22-29); Chloride 108 mmol/L (96-108); Cholesterol 161 mg/dL (<200); Estimated Glomerular Filt Rate > 60; HDL Cholesterol 50 mg/dL (>40); Iron 102 mcg/dL (30-160); Percent Iron Saturation 29 % (15-50); Potassium 4.2 mmol/L (3.3-5.1); Sodium 140 mmol/L (135-145); Total Iron Binding Capacity 348 mcg/dL (228-428); Total Protein 7.1 g/dL (6.5-8.0); Triglycerides 46 mg/dL (<150); Unsaturated Iron Binding 246 ug/dL
[2024-12-20 17:15] LABS: Ferritin 12 ng/mL (10-122)
[2024-12-20 17:30] LABS: Folate 12.4 ng/mL (> or = 4.0); Vitamin B12 947 pg/mL (200-900)
== END 2024-12-20 15:31 | disposition home or self-care (01) ==
LOC: HO.LAB 15:30
PROVIDERS: Visit Provider Physician Assistant Surgical
DX: Z98.84 Bariatric surgery status (principal)
CPT/HCPCS: 36415; 80053; 80061; 82306; 82607; 82728; 82746; 83036; 83525; 83540; 84425; 84443; 84590; 84630; 85025; 86140

== ENCOUNTER 2025-03-19 10:22 | Outpatient (AMB) | payer OTHER, SELFPAY ==
--- NOTE | 2025-03-19 10:43 | A.OFFVIS_ITS ---
VS Expanded 03/19/25 10:54 BP 129/73 Blood Pressure Location Rt brachial Blood Pressure Position Sitting Pulse 69 Pulse Source Pulse Oximeter Temp 97.6 F Temperature Source Temporal Artery Scan Pulse Oximetry 99 Oxygen Delivery Method Room Air Height 5 ft 5 in Weight 187 lb 12.8 oz BMI 31.2 Body Fat % 34.3 Body Fat Mass 64.4 Fat Free Mass 123.2 Visceral Fat Rating 6.0 Body Water % 47.0 Body Water Mass 88.2 Muscle Mass/Score 117.0 Basal Metabolic Rate/Score 1,685 Intake Visit Reasons: (OV) PO LSG 02/08/22 Allergies latex Allergy (Verified 03/19/25 10:52) Rash Medication List - Last Reconciled 03/19/25 by FRANK Bray albuterol sulfate mg inhalation albuterol sulfate 90 mcg/actuation (ProAir HFA) 2 puffs inhalation Q4-6H PRN cetirizine 10 mg PO DAILY cholecalciferol (vitamin D3) 50 mcg PO DAILY fluticasone propionate 110 mcg/actuation (Flovent HFA) 2 puffs inhalation BID fluticasone propionate 50 mcg/actuation 1 spray intranasal BID glucagon 3 mg/actuation (Baqsimi) mg intranasal insulin aspart U-100 (Novolog U-100 Insulin aspart) subcut insulin lispro (Humalog U-100 Insulin) insulin pump Held on 02/09/22. Instructions: Discuss dosing with Dr Black thiamine HCl (vitamin B1) 100 mg PO DAILY vitamin A palmitate 3,000 mcg PO DAILY HPI Comments Details: This?is a?34?yo F who is s/p LSG 02/08/2022. Weight at last visit on 10/12/2022 was 158 pounds with a BMI of 26.3. Weight today is unchanged from previous visit. No complaints of nausea, emesis, abdominal pain or reflux, or constipation. Present meal plan includes: -wakes up at night with low blood sugar after not eating much during the day -gave her [employer] lacey info at last visit which she uses most days Exercise: walking 1 hour 30 minutes daily outside - 3-4 miles having hip pain, knee pain and back pain [facility] Medical History Back pain Kidney stone Pre-op testing Diabetes GERD (gastroesophageal reflux disease) Asthma Binge eating disorder Diabetes Obesity (BMI 30-39.9) Surgical History H/O gastric sleeve Hx of tonsillectomy Hx of section Family History Mother Depression Hypertension Sister Depression Anxiety Sister Depression Anxiety Diabetes Social History Are you a primary director of health care marketing to a significant other at home: No Do you presently have visiting nurse or other home services: No Alcohol intake: never Patient Tobacco Use Status: Former Tobacco user Tobacco use type: Cigarette service: No Current occupational status: other Physical Exam Vital Signs: Last Vital Signs Temp 97.6 F 03/19/25 10:54 Pulse 69 03/19/25 10:54 BP 129/73 03/19/25 10:54 Pulse Ox 99 03/19/25 10:54 Oxygen Delivery Method Room Air 03/19/25 10:54 BMI result Body Mass Index 31.2 Assessment & Plan Assessment & Plan (1) S/P laparoscopic sleeve gastrectomy: Code(s): Z98.84 - Bariatric surgery status Category: Surgical (2) Obesity: Code(s): E66.9 - Obesity, unspecified Category: Medical Plan Will initiate phentermine. Discussed contraindications. Pt will text me home BP measurements daily while taking. She understands she needs to continue high protein meal plan. RTC 3-4m. Medications: New phentermine must administer 2 hours after breakfast 15 mg PO DAILY 30 caps 0RF
[2025-03-19 10:54] VITALS: BP 129/73; PULSE 69; TEMP 36.4; O2SAT 99; BMI 31.2
== END 2025-03-19 11:53 | disposition home or self-care (01) ==
LOC: HO.HBS 10:23
PROVIDERS: PCP Internal Medicine; Visit Provider Physician Assistant Surgical
DX: E66.9 Obesity, unspecified (principal); Z68.31 Body mass index [BMI] 31.0-31.9, adult; Z90.3 Acquired absence of stomach [part of]; Z98.84 Bariatric surgery status
CPT/HCPCS: 99213

== ENCOUNTER → 2025-03-19 10:22 | Outpatient (BNVA) | payer OTHER, SELFPAY | PROVIDERS: PCP Internal Medicine; Visit Provider Physician Assistant Surgical | DX: Z98.84 Bariatric surgery status (principal); E66.9 Obesity, unspecified | CPT/HCPCS: 99212 ==